=== PATIENT | female | born 1965 | race Caucasian/White ===

== ENCOUNTER 2018-06-04 10:00 | Emergency (ER) | payer SELFPAY ==
[~2018-06-04] VITALS: Ht 162.6 cm; Wt 93.0 kg
[2018-06-04 10:23] VITALS: BP 129/67
--- NOTE | 2018-06-04 10:31 | NUR ---
PT AMBULATED TO ER BED 11
--- NOTE | 2018-06-04 10:53 | NUR ---
53/F BIB FAMILY C/O FEVER 7 COUGH X 2 WEEKS WITH BACK PAIN. DENIES N/V/D; SKIN IS PINK/WARM/DRY; AAOX4 WITH EVEN AND STEADY GAIT; PATIENT STATES PAIN OF 9/10 AT THIS TIME. PATIENT POSITIONED FOR COMFORT; HOB ELEVATED; BEDRAILS UP X2; BED DOWN. ER MD MADE AWARE OF PT STATUS.
[2018-06-04] MEDS ORDERED: IPRATROPIUM 0.02% 0.5 MG/2.5 ML NEBU INH ONE (11:45)
[2018-06-04] MEDS ORDERED: ALBUTEROL 0.083% 2.5 MG/3 ML NEBU INH ONE (11:45)
[2018-06-04] MEDS ORDERED: predniSONE 20 MG TAB PO ONE (11:45)
--- NOTE | 2018-06-04 11:59 | NUR ---
RT AT BEDSIDE AT THIS TIME. RR EVEN AND UNLABORED, HOB ELEVATED. VSS. WILL CONTINUE TO MONITOR. FAMILY MEMBER AT BEDSIDE.
[2018-06-04 12:55] VITALS: BP 119/75
--- NOTE | 2018-06-04 12:55 | NUR ---
Patient discharged with v/s stable. Written and verbal after care instructions given and explained. Patient alert, oriented and verbalized understanding of instructions. Ambulatory with steady gait. All questions addressed prior to discharge. ID band removed. Patient advised to follow up with PMD. Rx of PREDNISONE 20MG, ALBUTEROL INHALATION, TESSALON PEARLS given. Patient educated on indication of medication including possible reaction and side effects. Opportunity to ask questions provided and answered.
== END 2018-06-04 12:55 | disposition home or self-care (01) ==
LOC: MED 10:00
DX: J98.01 Acute bronchospasm (principal); B34.9 Viral infection, unspecified; R03.0 Elevated blood-pressure reading, without diagnosis of hypertension
CPT/HCPCS: 71045; 94640; 99283; J7512; J7613; J7644; Q0092